=== PATIENT | male | born 2000 | race Caucasian/White ===

== ENCOUNTER 2024-10-21 09:30 | Emergency (ER) | payer MEDICAID, SELFPAY ==
[2024-10-21 10:27] VITALS: BP 117/82; PULSE 92; RESP 17; TEMP 36.6; O2SAT 99; BMI 21.3
--- NOTE | 2024-10-21 11:00 | PC.NURSE ---
PT'S VISITOR WALKED TO TRIAGE DESK TO SAY HE CAN'T WAIT ANY MORE, AND PT AND VISITOR SEEN WALKING OUT OF THE E.D.
--- NOTE | 2024-10-21 11:12 | PC.NURSE ---
CALLED FROM [facility] AND NO ANSWER
--- NOTE | 2024-10-21 11:18 | PC.NURSE ---
CALLED FROM [facility] AND NO ANSWER
== END 2024-10-21 11:12 | disposition left against medical advice (07) ==
LOC: SERX 11:26
PROVIDERS: Emergency Provider Emergency Medicine
DX: Z53.21 Procedure and treatment not carried out due to patient leaving prior to being seen by health care provider (principal)
CPT/HCPCS: 99281